=== PATIENT | female | born 1945 | race Caucasian/White ===

== ENCOUNTER 2019-02-11 07:37 | Day surgery (SDC) | payer MEDICARE ==
[~2019-02-11] VITALS: Ht 157.5 cm; Wt 69.0 kg
[2019-02-11] MEDS ORDERED: LEVSOD75 PO ×2 (08:07)
== END 2019-02-11 09:52 | disposition home or self-care (01) ==
LOC: ORSCSDS 07:37
PROVIDERS: Surgery
PROC: 0DJD8ZZ Inspection of Lower Intestinal Tract, Via Natural or Artificial Opening Endoscopic (ICD-10-PCS; principal; 2019-02-11 09:00)
DX: Z12.11 Encounter for screening for malignant neoplasm of colon (principal); E03.9 Hypothyroidism, unspecified; Z79.899 Other long term (current) drug therapy
CPT/HCPCS: J2704; J7120